=== PATIENT | male | born 1960 | race Native Hawaiian/Other Pacific Islander ===

== ENCOUNTER 2018-02-21 09:18 | Emergency (ER) | payer BC ==
[2018-02-21 09:25] VITALS: BP 157/88; PULSE 90; TEMP 98.5; BMI 26.1
[2018-02-21] MEDS ORDERED: KETOROLAC TROMETHAMINE 30 MG/1 ML VIAL IM ONE (09:48)
[2018-02-21] MEDS ORDERED: IBUPROFEN 600 MG TABLET (FP) PO ONE ×2 (10:01→10:02)
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
== END 2018-02-21 10:11 | disposition home or self-care (01) ==
LOC: JERFT 09:18
DX: M54.2 Cervicalgia (principal); W20.8XXA Other cause of strike by thrown, projected or falling object, initial encounter; Y93.89 Activity, other specified; Y92.89 Other specified places as the place of occurrence of the external cause; E78.5 Hyperlipidemia, unspecified
CPT/HCPCS: 99281-25

== ENCOUNTER 2019-06-21 07:53 | Observation (INO) | payer BC ==
--- NOTE | 2019-06-21 08:21 | PDOC ---
History of Present Illness - General Chief Complaint: Chest Pain Stated Complaint: CHEST PAIN Time Seen by Provider: 06/21/19 08:01 History Source: Patient Exam Limitations: No Limitations - History of Present Illness Initial Comments: 06/21/19 08:25 59 yo male pmh of HLD presents to the ED for sudden onset CP with radiation to his back and neck. Pt states after being seated for 30 min after arriving to work, he had sudden onset stabbing CP with radiation to his back and neck, checked his vitals which were notable for HR over 100 and BP in the 170s, pt proceeded to the ED at this time. Pt saw Mainframe Consultant (Dr. Vyas) yesterday, EKG reported as normal, last stress test over 10 years ago. Denies calf tenderness, recent travel, SOB, F/CN/V, recent illness, abdominal pain. Past History - Past Medical History Allergies/Adverse Reactions: Allergies Allergy/AdvReac Type Severity Reaction Status Date / Time No Known Allergies Allergy Verified 06/21/19 07:57 Home Medications: Ambulatory Orders Aspirin [ASA -] 81 mg PO DAILY 06/21/19 Atorvastatin Calcium 10 mg PO DAILY 06/21/19 Anemia: No Asthma: No Cancer: No Cardiac Disorders: No CVA: No COPD: No CHF: No DVT: No Dementia: No Diabetes: No GI Disorders: No Disorders: No HTN: No Hypercholesterolemia: Yes Liver Disease: No Seizures: No Thyroid Disease: No - Surgical History Abdominal Surgery: No Appendectomy: No Cardiac Surgery: No Cholecystectomy: Yes Lung Surgery: No Neurologic Surgery: No Orthopedic Surgery: No - Immunization History Immunization Up to Date: Yes - Psycho Social/Smoking Cessation Hx Smoking Status: No Smoking History: Never smoked Number of Cigarettes Smoked Daily: 0 Hx Alcohol Use: No Drug/Substance Use Hx: No Substance Use Type: None Review of Systems - Review of Systems Constitutional: No: Chills, Fever HEENTM: No: Double Vision Respiratory: No: Shortness of Breath Cardiac (ROS): Yes: Chest Pain. No: Edema, Lightheadedness, Palpitations ABD/GI: No: Constipated, Diarrhea, Nausea, Vomiting : No: Burning, Dysuria, Frequency, Flank Pain Musculoskeletal: Yes: Back Pain Neurological: No: Headache, Numbness, Paresthesia *Physical Exam - Vital Signs Last Vital Signs Temp Pulse Resp BP Pulse Ox 98.4 F 92 H 16 174/96 H 97 06/21/19 07:55 06/21/19 07:55 06/21/19 07:55 06/21/19 07:55 06/21/19 07:55 - Physical Exam General Appearance: Yes: Nourished, Appropriately Dressed. No: Apparent Distress HEENT: positive: EOMI Neck: positive: Supple. negative: Carotid bruit Respiratory/Chest: positive: Lungs Clear, Normal Breath Sounds. negative: Respiratory Distress, Accessory Muscle Use, Crackles, Rales, Rhonchi, Wheezing Cardiovascular: positive: Regular Rhythm, Regular Rate, S1, S2. negative: Edema , JVD, Murmur Vascular Pulses: Dorsalis-Pedis (R): 4+, Doralis-Pedis (L): 4+ Gastrointestinal/Abdominal: positive: Flat, Soft. negative: Protuberent, Distended, Guarding, Rebound, Tenderness Musculoskeletal: negative: CVA Tenderness Extremity: positive: Normal Inspection Integumentary: positive: Normal Color, Dry, Warm Neurologic: positive: Fully Oriented, Alert, Normal Mood/Affect, Normal Response , Motor Strength 5/5 Heart Score/ECG Review - History History: Moderately suspicious - Electrocardiogram EKG: Normal - Age Age: 45-65 - Risk Factors Risk Factors Heart Score: Yes Hx Hypercholesterolemia, No Hx Hypertension, No Hx Diabetes, No Smoking History, No Positive family hx of cardiac disease, Yes Hx Obesity Based on the list above the patient has:: 1-2 risk factors - Troponin Troponin: </= normal limit - Score Heart Score - Total: 3 - ECG Intrepretation Rhythm: Regular Rhythm ED Treatment Course - LABORATORY CBC & Chemistry Diagram: 06/21/19 08:15 06/21/19 08:15 - RADIOLOGY Radiology Studies Ordered: Category Date Time Status CHEST PA & LAT [RAD] Stat Radiology 06/21/19 08:13 Ordered Medical Decision Making - Medical Decision Making 06/21/19 08:40 59 yo male pmh of HLD presents to the ED for sudden onset CP with radiation to his back and neck. Pt states after being seated for 30 min after arriving to work, he had sudden onset stabbing CP with radiation to his back and neck, checked his vitals which were notable for HR over 100 and BP in the 170s, pt proceeded to the ED at this time. Pt saw Mainframe Consultant (Dr. Vyas) yesterday, EKG reported as normal, last stress test over 10 years ago. Denies calf tenderness, recent travel, SOB, F/CN/V, recent illness, abdominal pain. vitals show elevated BP 174/96 and HR 92 (repeat on exam at the bedside, 155 systolic and HR 87) EKG NSR no signs of ischemia DDX INLT: ACS, PE (not tachypnic, not hypoxic, no sig risk factors) GERD, ulcer HEART score 3, discussed Case with Cardiology who state pt should be admitted to tele obs pt is stable, no acute distress, vitals improve pt accepted for admission Discharge - Discharge Information Problems reviewed: Yes Clinical Impression/Diagnosis: Chest pain Condition: Stable - Admission Yes - Follow up/Referral - Patient Discharge Instructions - Post Discharge Activity
--- NOTE | 2019-06-21 08:30 | PDOC ---
Attending Attestation - Resident Resident Name: Avinash Shukla - ED Attending Attestation I have performed the following: I have examined & evaluated the patient, The case was reviewed & discussed with the resident, I agree w/resident's findings & plan, Exceptions are as noted - HPI HPI: 06/21/19 09:26 59 years old with past medical history significant for high cholesterol no known cardiac history no active tobacco no history of hypertension or diabetes no significant family history of coronary artery disease presents to the emergency department substernal chest pain mild radiation sharp in nature 7 out of 10 now down to a 2 out of 10 no exacerbating relieving factors occurred at rest while at work not exertional. ROS: A complete review of 10 out of 10 review of systems is taken and is negative apart from what is previously mentioned below and in the HPI. - Physicial Exam PE: 06/21/19 09:28 Vitals: Triage Vital signs reviewed General Appearance: No acute distress, well nourished well developed, Head: Atraumatic, Neck: Supple; no Nucal rigidity Chest Wall: Nontender Cardiac: Regular rate and rhythym, no murmurs, no rubs, no gallops, Lungs: Clear to auscultation bilateral, good air movement bilaterally, Abdomen: Soft, non distended, normal bowel sounds, non tender to palpation Extremities: Full range of motion to all extremities, no cyanosis, clubbing, or edema Skin: Warm and dry, no rashes or lesions, no rash, no petechiae Psych: Normal mood, normal affect - Medical Decision Making 06/21/19 09:29 Moderately suspicious ACS story patient presenting just after chest pain started Case discussed with patient's re etcher recommends observation for serial troponins and further management and evaluation of ACS Heart Score/ECG Review - History History: Moderately suspicious - Electrocardiogram EKG: Normal - Age Age: 45-65 - Risk Factors Risk Factors Heart Score: Yes Hx Hypercholesterolemia Based on the list above the patient has:: 1-2 risk factors - Troponin Troponin: </= normal limit - Score Heart Score - Total: 3 - ECG Impressions Comment:: 06/21/19 09:[address] elevations no T wave inversions Interpreted by me
[2019-06-21 08:57] LABS: EOS % 1.5 % (0-4.5); HEMATOCRIT 51.1 % (35.4-49); HEMOGLOBIN 17.4 GM/dL (11.7-16.9); LYMPH % 31.9 % (8-40); MCH 30.3 pg (25.7-33.7); MCHC 34.1 g/dl (32.0-35.9); MEAN CELL VOLUME 88.8 fl (80-96); MEAN PLT VOLUME 7.3 fl (7.5-11.1); MONO % 9.3 % (3.8-10.2); NEUT % 56.3 % (42.8-82.8); PLATELET COUNT 239 K/MM3 (134-434); RBC 5.76 M/mm3 (4.00-5.60); RDW 13.1 % (11.9-15.9); WHITE BLOOD COUNT 7.1 K/mm3 (4.0-10.0)
[2019-06-21 09:18] LABS: INR 0.95 (0.83-1.09); PROTHROMBIN TIME (PATIENT) 11.2 SEC (9.7-13.0)
[2019-06-21 09:20] LABS: ACTIVATED PTT 32.8 SECONDS (25.2-36.5)
[2019-06-21 09:22] LABS: ALBUMIN 4.5 g/dl (3.4-5.0); ALK PHOS 97 U/L (45-117); ANION GAP 6 MMOL/L (8-16); BILIRUBIN,TOTAL 0.5 mg/dL (0.2-1); BLOOD UREA NITROGEN 15.8 mg/dL (7-18); CALCIUM 9.9 mg/dL (8.5-10.1); CHLORIDE 104 mmol/L (98-107); CO2 28 mmol/L (21-32); CREATININE 1.1 mg/dL (0.55-1.3); GLUCOSE,RANDOM 130 mg/dL (74-106); MAGNESIUM 2.1 mg/dL (1.8-2.4); POTASSIUM 4.3 mmol/L (3.5-5.1); SGOT/AST 20 U/L (15-37); SGPT/ALT 38 U/L (13-61); SODIUM 138 mmol/L (136-145); TOT PROT 7.8 g/dl (6.4-8.2)
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
[2019-06-21] MEDS: METOPROLOL TARTRATE 25 MG TABLET (FP) PO SCH ×2 (12:11→22:05)
[2019-06-21] MEDS: ASPIRIN 81 MG CHEWABLE TABLETS PO SCH (12:11)
[2019-06-21] MEDS ORDERED: ASPIRIN 81 MG CHEWABLE TABLETS ONE (12:13)
[2019-06-21] MEDS ORDERED: METOPROLOL TARTRATE 25 MG TABLET (FP) ONE (12:13)
--- NOTE | 2019-06-21 13:49 | ECHO ---
Name: PIA TOMLIN Exam:Adult Echocardiogram Study Date: 06/21/2019 01:16 PM Age: 59 yrs Reason For Study: Chest pain Height: 65 in Weight: 172 lb BSA: 1.9 m2 MMode/2D Measurements & Calculations IVSd: 1.1 cm Ao root diam: 2.3 cm LVIDd: 3.4 cm LA dimension: 2.7 cm LVIDs: 2.4 cm ACS: 1.7 cm LVPWd: 1.1 cm EDV(Teich): 47.4 ml LVOT diam: 1.8 cm ESV(Teich): 20.2 ml RV S Maximiliano: 9.7 cm/sec Doppler Measurements & Calculations MV E max maximiliano: 89.8 cm/sec Ao V2 max: 122.2 cm/sec MV A max maximiliano: 82.9 cm/sec Ao max P.0 mmHg MV E/A: 1.1 Ao V2 mean: 94.5 cm/sec MV dec time: 0.23 sec Ao mean P.8 mmHg Ao V2 VTI: 25.6 cm SHELLIE(I,D): 1.4 cm2 SHELLIE(V,D): 1.7 cm2 LV V1 max P.7 mmHg MR max maximiliano: 260.6 cm/sec LV V1 mean P.4 mmHg MR max P.2 mmHg LV V1 max: 81.9 cm/sec LV V1 mean: 56.0 cm/sec LV V1 VTI: 14.8 cm SV(LVOT): 36.9 ml TR max maximiliano: 127.0 cm/sec TR max P.5 mmHg Med Peak E' Maximiliano: 11.8 cm/sec Med E/e': 7.6 Lat Peak E' Maximiliano: 12.0 cm/sec Lat E/e': 7.5 Left Ventricle Left ventricular systolic function is normal. The transmitral spectral Doppler flow pattern is normal for age. The left ventricular wall motion is normal. Right Ventricle The right ventricle is normal in size and function. Atria Normal left and right atrial size and function. Mitral Valve The mitral valve is normal in structure and function. There is no mitral valve stenosis. There is tra ce to mild mitral regurgitation. Tricuspid Valve The tricuspid valve is normal in structure and function. There is mild tricuspid regurgitation. Right ventricular systolic pressure is normal. Aortic Valve The aortic valve opens well. No hemodynamically significant valvular aortic stenosis. No aortic regur gitation is present. Pulmonic Valve The pulmonic valve is not well seen, but is grossly normal. There is no pulmonic valvular stenosis. T here is no pulmonic valvular regurgitation. Great Vessels The aortic root is normal size. Pericardium/Pleura There is no pericardial effusion. Interpretation Summary Left ventricular systolic function is normal. The right ventricle is normal in size and function. There is trace to mild mitral regurgitation. There is mild tricuspid regurgitation. There is no pericardial effusion. MD Dunne *Jesse 06/21/2019 01:49 PM
[2019-06-21] MEDS ORDERED: ACETAMINOPHEN 325 MG TABLET (FP) PO PRN (16:00)
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
[2019-06-21 20:07] VITALS: BMI 28.6
--- NOTE | 2019-06-21 23:35 | EKG ---
Test Reason : Blood Pressure : / mmHG Vent. Rate : 083 BPM Atrial Rate : 083 BPM P-R Int : 150 ms QRS Dur : 088 ms QT Int : 378 ms P-R-T Axes : 064 016 040 degrees QTc Int : 444 ms POOR DATA QUALITY, INTERPRETATION MAY BE ADVERSELY AFFECTED NORMAL SINUS RHYTHM NORMAL ECG WHEN COMPARED WITH ECG OF 21-SEP-2014 02:28, NO SIGNIFICANT CHANGE WAS FOUND Confirmed by MD Evangelina, Duane ([id number]) on 06/21/2019 11:35:09 PM Referred By: Confirmed By:Duane Hutchinson MD
[2019-06-22 07:46] LABS: BASO % 1.1 % (0-2.0); EOS % 1.7 % (0-4.5); HEMATOCRIT 53.3 % (35.4-49); HEMOGLOBIN 18.4 GM/dL (11.7-16.9); LYMPH % 33.7 % (8-40); MCH 30.5 pg (25.7-33.7); MCHC 34.4 g/dl (32.0-35.9); MEAN CELL VOLUME 88.6 fl (80-96); MEAN PLT VOLUME 7.3 fl (7.5-11.1); MONO % 8.1 % (3.8-10.2); NEUT % 55.4 % (42.8-82.8); PLATELET COUNT 235 K/MM3 (134-434); RBC 6.02 M/mm3 (4.00-5.60); RDW 13.1 % (11.9-15.9); WHITE BLOOD COUNT 7.2 K/mm3 (4.0-10.0)
[2019-06-22 08:00] LABS: CHOLESTEROL 169 mg/dL (50-200); HDL CHOLESTEROL 36 mg/dL (40-60); LDL CHOLESTEROL (ONLY SJRH) 105 mg/dL (5-100); TRIGLYCERIDES 193 mg/dL (0-150)
[2019-06-22 08:08] LABS: ALBUMIN 4.4 g/dl (3.4-5.0); ALK PHOS 85 U/L (45-117); ANION GAP 5 MMOL/L (8-16); BLOOD UREA NITROGEN 15.3 mg/dL (7-18); CALCIUM 9.5 mg/dL (8.5-10.1); CHLORIDE 106 mmol/L (98-107); CO2 27 mmol/L (21-32); GLUCOSE,RANDOM 107 mg/dL (74-106); POTASSIUM 4.3 mmol/L (3.5-5.1); SGOT/AST 19 U/L (15-37); SGPT/ALT 38 U/L (13-61); SODIUM 138 mmol/L (136-145); TOT PROT 7.9 g/dl (6.4-8.2)
[2019-06-22] MEDS: METOPROLOL TARTRATE 25 MG TABLET (FP) PO SCH (09:45)
[2019-06-22] MEDS: ASPIRIN 81 MG CHEWABLE TABLETS PO SCH (09:45)
[2019-06-22 09:52] VITALS: BP 126/79; PULSE 76; TEMP 98.2
--- NOTE | 2019-06-22 12:24 | DS ---
Physical Examination Vital Signs: Vital Signs Temperature 98.2 F 06/22/19 09:49 Pulse Rate 76 06/22/19 09:49 Respiratory Rate 18 06/22/19 09:49 Blood Pressure 126/79 06/22/19 09:49 O2 Sat by Pulse Oximetry (%) 96 06/22/19 04:00 Labs: CBC, BMP 06/22/19 07:00 06/22/19 07:00 Discharge Summary Problems reviewed: Yes Reason For Visit: CHEST PAIN Current Active Problems Chest pain (Acute) Condition: Stable - Instructions Referrals: Evaristo Galvan MD [Primary Care Provider] - Ariel Vyas MD [Staff Physician] - Jennifer Garcia MD [Non Staff, Medical] - 1 Month (hematology ) - Home Medications Comprehensive Discharge Medication List: Ambulatory Orders Aspirin [ASA -] 81 mg PO DAILY 06/21/19 Atorvastatin Calcium 10 mg PO DAILY 06/21/19 Metoprolol Tartrate [Lopressor -] 25 mg PO BID #60 tablet 06/22/19
--- NOTE | 2019-06-22 12:31 | PN ---
Progress Note (short form) - Note Progress Note: s: no chest pain, palps, dizziness, dyspnea. wants to go home Current Medications Acetaminophen (Tylenol -) 650 mg PO Q4H PRN PRN Reason: PAIN LEVEL 1-5 Aspirin (Asa -) 81 mg PO DAILY [facility] Last Admin: 06/22/19 09:45 Dose: 81 mg Metoprolol Tartrate (Lopressor -) 25 mg PO BID [facility] Last Admin: 06/22/19 09:45 Dose: 25 mg Vital Signs Period Temp Pulse Resp BP Sys/Anaya Pulse Ox Last 24 Hr 97.9 F-98.5 F 64-78 16-19 118-142/73-86 95-96 Constitutional: Yes: No Distress, Calm Eyes: Yes: Conjunctiva Clear, EOM Intact Neck: Yes: Trachea Midline Respiratory: Yes: CTA Bilaterally Gastrointestinal: Yes: Soft (NT) Cardiovascular: Yes: Regular Rate and Rhythm Carotid Bruit: No PMI: Non-Displaced Heart Sounds: Yes: S1, S2 (rrr, no murmurs) Edema: No Peripheral Pulses WNL: Yes Neurological: Yes: Alert, Oriented Imaging - Results Chest X-ray: Image Reviewed EKG: Image Reviewed tele: sinus, sinus hina Assessment/Plan IMP: Hyperlipidemia HTN Chest pain syndrome: r/o ACS REC: 1. Tele - no events 2. Echo - nl LV function, no significant aortic enlargement and no RV dilatation or PHTN/pericardial disease 3. trop neg x 2, EKG no ischemic changes - unlikely ACS 4. cont aspirin 5. cont Metoprolol tartrate 25mg BID for HTN 6. Exercise nuclear stress was recommended to be done as inpatient, however pt is refusing and wants to go home. Sees Dr. Vyas, advised to follow up within 1 -2 weeks
== END 2019-06-22 13:29 | disposition home or self-care (01) ==
LOC: JER 07:53 → JERBED 10:21 → J4S 18:33
PROVIDERS: ADMIT Internal Medicine; ATTEND Internal Medicine
DX: R07.89 Other chest pain (principal); E78.5 Hyperlipidemia, unspecified; I10 Essential (primary) hypertension; Z79.82 Long term (current) use of aspirin
CPT/HCPCS: 36415; 71046-TC-FY; 80053; 80061; 82550; 82553; 83721; 83735; 84443; 84484; 85025; 85610; 85730; 93005; 93010; 93306-TC; 99285-25; G0378